=== PATIENT | female | born 1980 | race Hispanic/Latino ===

== ENCOUNTER 2021-10-15 03:42 | Inpatient (IN) | payer MEDICAID, SELFPAY ==
[2021-10-15] MEDS ORDERED: Ibuprofen 800 MG TAB PO PRN (04:06)
[2021-10-15] MEDS ORDERED: Lidocaine 1% (PF) 30 ML VIAL SC PRN (04:06)
[2021-10-15] MEDS ORDERED: HYDROcodone/Acetaminophen 5/325 mg Tablet PO PRN ×2 (04:06→09:24)
[2021-10-15] MEDS ORDERED: hydrALAZINE 20 MG/ML VIAL SLOW IVP PRN ×2 (04:06→09:24)
[2021-10-15] MEDS ORDERED: Ondansetron PF 4 MG/2 ML Vial IVP PRN ×3 (04:06→09:24)
[2021-10-15] MEDS ORDERED: Fentanyl 100 MCG/2 ML VIAL SLOW IVP PRN (04:06)
[2021-10-15] MEDS ORDERED: Promethazine HCl 25 MG/ML VIAL IM PRN ×2 (04:06→05:36)
[2021-10-15] MEDS ORDERED: Acetaminophen 500 MG TAB PO PRN (04:06)
[2021-10-15] MEDS ORDERED: Misoprostol 200 MCG TAB PR PRN (04:06)
[2021-10-15] MEDS ORDERED: Methylergonovine 0.2 MG/ML VIAL IM PRN (04:06)
[2021-10-15 04:12] VITALS: BMI 31.1
[2021-10-15] MEDS ORDERED: Lactated Ringer's 1,000 ML IV SCH (04:15)
[2021-10-15] MEDS ORDERED: NS w/ Oxytocin 30 units 500 ML IV SCH (04:15)
[2021-10-15 04:44] LABS: Hemoglobin 12.7 g/dL (12.0-15.5); Mean Corpuscular HGB CONC 34.2 g/dL (32.0-36.0); Mean Corpuscular Hemoglobin 30.2 pg (27.0-33.0); Mean Corpuscular Volume 88.3 fl (81.6-98.3); Mean Platelet Volume 12.8 fl (7.4-10.4); Platelet Count 130 10x3/uL (150-450); RBC Distribution Width 14.5 % (11.5-14.5)
[2021-10-15] MEDS ORDERED: Fentanyl 2 mcg/Bup 0.1% Cadd 100 ML ONE (05:02)
[2021-10-15 05:14] LABS: Hep B Surf Ag Non-Reactive S/CO (NonReactive); Syphilis Antibody Nonreactive (Nonreactive); Syphilis Antibody Index 0.05 S/CO (<1.00 Non-Reactive)
[2021-10-15 05:15] LABS: HBSAg Index 0.21 S/CO (0-0.99); HIV (1/2) Antibody/Antigen Non-Reactive (NonReactive); HIV 1/2 INDEX 0.12 S/CO (<1.00)
[2021-10-15] MEDS ORDERED: Acetaminophen 325 MG TAB PO PRN (05:36)
[2021-10-15] MEDS ORDERED: Lactated Ringer's 500 ML IV PRN (05:36)
[2021-10-15] MEDS ORDERED: Moisturizing Cream (Eucerin) 113 GM JAR TOP PRN (05:36)
[2021-10-15] MEDS ORDERED: ePHEDrine Sulfate 50 MG/10 ML VIAL SLOW IVP PRN (05:36)
[2021-10-15] MEDS ORDERED: diphenhydrAMINE 50 MG/ML VIAL IVP PRN (05:36)
[2021-10-15] MEDS ORDERED: Naloxone HCl 0.4 mg/ml Vial IVP PRN ×2 (05:36)
[2021-10-15] MEDS ORDERED: Communication Order-Pharmacy FS SCH (05:45)
[2021-10-15] MEDS ORDERED: Fentanyl 2 mcg/Bupivacaine 0.1% Cassette 100 ML EPIDURAL SCH (05:45)
[2021-10-15] MEDS ORDERED: Carboprost 250 MCG/ML AMP ONE (06:06)
[2021-10-15] MEDS ORDERED: Bupivacaine HCl 0.5%/Epinephrine 1:200,000/PF 30 ml Vial ONE (08:00)
[2021-10-15] MEDS ORDERED: Bisacodyl 10 MG SUPP PR PRN (09:24)
[2021-10-15] MEDS ORDERED: Boostrix 0.5 ML (Tdap) VIAL IM ONE (09:24)
[2021-10-15] MEDS ORDERED: Zolpidem Tartrate 5 MG TAB PO PRN (09:24)
[2021-10-15] MEDS ORDERED: Lanolin Ointment 7 GM TUBE TOP PRN (09:24)
[2021-10-15] MEDS ORDERED: Milk Of Magnesia 30 ML UDCUP PO PRN (09:24)
[2021-10-15] MEDS ORDERED: Docusate 100 MG CAP PO SCH (10:00)
[2021-10-15] MEDS ORDERED: Prenatal Vitamin 1 TAB PO SCH (10:00)
[2021-10-15 12:09] LABS: SARS-CoV-2 NAA Rapid Test Not Detected (NotDetected)
[2021-10-15] MEDS: Ibuprofen 800 MG TAB PO SCH ×2 (14:48→22:02)
[2021-10-15] MEDS: Ferrous Sulfate 325 MG TAB PO SCH (17:09)
[2021-10-15] MEDS: Docusate 100 MG CAP PO SCH (22:02)
[2021-10-16] MEDS: Ibuprofen 800 MG TAB PO SCH ×3 (06:07→21:31)
[2021-10-16] MEDS: Ferrous Sulfate 325 MG TAB PO SCH ×2 (10:44→21:30)
[2021-10-16] MEDS: Docusate 100 MG CAP PO SCH ×2 (10:44→21:31)
[2021-10-16] MEDS: Prenatal Vitamin 1 TAB PO SCH (10:44)
[2021-10-17] MEDS: Ibuprofen 800 MG TAB PO SCH (05:50)
[2021-10-17 08:04] VITALS: BP 115/66; TEMP 98
[2021-10-17] MEDS: Ferrous Sulfate 325 MG TAB PO SCH (09:21)
[2021-10-17] MEDS: Prenatal Vitamin 1 TAB PO SCH (09:22)
[2021-10-17] MEDS: Docusate 100 MG CAP PO SCH (09:22)
== END 2021-10-17 12:36 | disposition home or self-care (01) | DRG 807 ==
LOC: CSHLD/OP 03:42 → CSHLD 04:14 → CSHPP 09:00
PROVIDERS: ADMIT Student in an Organized Health Care Education/Training Program; ATTEND Student in an Organized Health Care Education/Training Program
PROC: 10E0XZZ Delivery of Products of Conception, External Approach (ICD-10-PCS; principal; 2021-10-15)
DX: O80 Encounter for full-term uncomplicated delivery (principal); Z37.0 Single live birth; Z3A.39 39 weeks gestation of pregnancy; Z20.822 Contact with and (suspected) exposure to COVID-19
CPT/HCPCS: 36415; 51702; 85014; 85018; 85027; 86780; 86850; 86900; 86901; 87340; 87389; 88307; 99285; J2590; U0002